=== PATIENT | male | born 1960 | race Caucasian/White ===

== ENCOUNTER → 2017-05-11 | Outpatient (CLI) | payer OTHER | LOC: FIMAGING 13:25 | PROVIDERS: ATTEND Orthopaedic Surgery | DX: M17.12 Unilateral primary osteoarthritis, left knee (principal); S83.012A Lateral subluxation of left patella, initial encounter ==

== ENCOUNTER 2017-05-23 09:10 | Observation (INO) | payer OTHER ==
--- NOTE | 2017-05-23 06:43 | PDHPUP ---
History & Physical Update H&P update statement: This history and physical update is based on an assessment of the patient which was completed after admission or registration (within 24 hours), but prior to the surgery/procedure.
--- NOTE | 2017-05-23 06:43 | PDIAF ---
- Diagnosis Diagnosis: left knee djd Code Status: Full Code - Medication Management Discharge Medications: Medications to Continue on Transfer Citalopram Hydrobromide [celeXA 10 MG] 10 mg PO Q2D 04/10/10 [Last Taken Unknown ] lamoTRIgine [LamICTAL 100 MG (*)] 100 mg PO DAILY 04/10/10 [Last Taken Unknown] Atorvastatin Calcium [Lipitor 20 mg (*)] 20 mg PO DAILY 05/04/17 [Last Taken Unknown] Glucosamine Sulfate [Glucosamine Sulfate 500 MG (*)] 500 mg PO DAILY 05/04/17 [ Last Taken Unknown] Herbals/Supplements -Info Only 1 ea PO DAILY 05/04/17 [Last Taken Unknown] Multivitamins [Multivitamin (*)] 1 each PO DAILY 05/04/17 [Last Taken Unknown] Discharge Medications: Refer to the Discharge Home Medication list for PRN reason. - Orders Services needed: Home Care, Physical Therapy Home Care Face to Face: I certify that this patient was under my care and that I had the required cqxy-ar-rnma encounter meeting the encounter requirements on the discharge day. My findings support the fact that the patient is homebound as defined in Home Care Face to Face Continued: CMS Chapter 7 Medicare Benefits Manual 30.1.1 , The condition of the patient is such that there exists a normal inability to leave home and consequently, leaving home would require a considerable and taxing effort. Activity/Weight Bearing Restrictions: wbat. rom as tolerated. daily dressing changes. may shower without bandage. no immersion. vish hose x 2 weeks. seek attn for increasing redness, swelling, drainage, discharge. f/u at two weeks [facility] [place] [facility] - Follow Up Care Current Providers and Referrals: Bang Larry MD [Primary Care Provider] -
[~2017-05-23 09:10] MED LIST: ROPIVACAINE 0.2% 80 MG, EPINEPHrine 0.2 MG, KETOROLAC TROMETHAMINE 30 MG, morphINE 10 M... IU ONE; TRANEXAMIC ACID 1,000 MG in NS 100 ML IV ONE; TRANEXAMIC ACID 2,000 MG in NS 100 ML IV ONE
[2017-05-23] MEDS ORDERED: FAMOTIDINE 20 MG TAB PO ONE (09:21)
[2017-05-23] MEDS ORDERED: ceFAZolin 2 GM/SWFI 2 GM/20 ML SYR IVP ONE (09:21)
[2017-05-23] MEDS ORDERED: ACETAMINOPHEN 325 MG TAB PO ONE (09:21)
[2017-05-23] MEDS ORDERED: LR 1,000 ML IV ONE (09:34)
[2017-05-23] MEDS ORDERED: LIDOCAINE 1% 2 ML INJ ID PRN (09:34)
--- NOTE | 2017-05-23 10:23 | PDANEPAE ---
ANE History of Present Illness 56 yo old obese male for L knee partial replacement. ANE Past Medical History - Cardiovascular History Hx Hypertension: Yes Hx Arrhythmias: No Hx Chest Pain: No Hx Coronary Artery / Peripheral Vascular Disease: No Hx CHF / Valvular Disease: No Hx Palpitations: No Cardiovascular History Comment: No meds for HTN, attempting diet modification and exercise. - Pulmonary History Hx COPD: No Hx Asthma/Reactive Airway Disease: No Hx Recent Upper Respiratory Infection: No Hx Oxygen in Use at Home: No Hx Sleep Apnea: Yes Sleep Apnea Screening Result - Last Documented: Negative Pulmonary History Comment: Uses CPAP. - Neurologic History Hx Cerebrovascular Accident: No Hx Seizures: No Hx Dementia: No - Endocrine History Hx Diabetes: No Hypothyroid: No Obesity: yes - Renal History Hx Renal Disorders: No - Liver History Hx Hepatic Disorders: No - Neurological & Psychiatric Hx Hx Neurological and Psychiatric Disorders: Yes Neurological / Psychiatric History Comment: BIPOLAR - Cancer History Hx Cancer: No - Congenital Disorder History Hx Congenital Disorders: No - GI History GERD: no Hx Gastrointestinal Disorders: No - Other Health History Other Health History: NONE - Chronic Pain History Chronic Pain: No - Surgical History Prior Surgeries: L KNEE X2, SHOULDER ANE Review of Systems Review of systems is: negative Review of Systems: - Exercise capacity METS (RN): 4 METS (unable to hike at all or walk much for the past month.) - Systems Constitutional: Reports: no symptoms Cardiac: Reports: no symptoms ANE Patient History - Allergies Allergies/Adverse Reactions: No Known Allergies Allergy (Unverified 04/10/10 08:42) - Home Medications Home medications: home medication list seen and reviewed Home Medications: Citalopram Hydrobromide [celeXA 10 MG] 10 mg PO Q2D 04/10/10 [Last Taken Unknown ] lamoTRIgine [LamICTAL 100 MG (*)] 100 mg PO DAILY 04/10/10 [Last Taken Unknown] Atorvastatin Calcium [Lipitor 20 mg (*)] 20 mg PO DAILY 05/04/17 [Last Taken Unknown] Glucosamine Sulfate [Glucosamine Sulfate 500 MG (*)] 500 mg PO DAILY 05/04/17 [ Last Taken Unknown] Multivitamins [Multivitamin (*)] 1 each PO DAILY 05/04/17 [Last Taken Unknown] RX: Herbals/Supplements -Info Only 1 ea PO DAILY 05/04/17 [Last Taken Unknown] - NPO status NPO Since - Liquids (Date): 05/22/17 NPO Since - Liquids (Time): 21:00 NPO Since - Solids (Date): 05/22/17 NPO Since - Solids (Time): 19:00 - Anes Hx Anes Hx: no prior problems - Smoking Hx Smoking Status: Never smoked Marijuana use: No - Alcohol Use Alcohol Use: Occasionally (tez every week or so) - Family Anes Hx Family Anes Hx: none Family Hx Anesthesia Complications: none ANE Labs/Vital Signs - Vital Signs Blood Pressure: 159/98 (Pt reports BP better controlled per home monitoring ( 120s/80s)) Heart Rate: 82 Respiratory Rate: 20 O2 Sat (%): 93 Height: 175.26 cm Weight: 108.862 kg ANE Physical Exam - Airway Neck exam: FROM Mallampati Score: Class 2 Mouth exam: normal dental/mouth exam - Pulmonary Pulmonary: clear to auscultation - Cardiovascular Cardiovascular: regular rate and rhythym - ASA Status ASA Status: III ANE Anesthesia Plan Anesthesia Plan: spinal Regional Anesthesia: adductor canal FNB
[2017-05-23] MEDS ORDERED: THROMBIN (BOVINE) 5,000 UNIT VIAL TP ONE ×2 (10:52→12:08)
[2017-05-23] MEDS ORDERED: CALCIUM CHLORIDE 1 GM/10 ML INJ ONE (10:53)
[2017-05-23] MEDS ORDERED: ceFAZolin 1 GM/5 ML SYR ONE (10:54)
[2017-05-23] MEDS ORDERED: fentaNYL 100 MCG/2 ML INJ IVP ONE (11:07)
[2017-05-23] MEDS ORDERED: PROPOFOL/EMULSION 500 MG/50 ML BOTTLE IV ONE (11:51)
[2017-05-23] MEDS ORDERED: DEXAMETHASONE 4 MG/ML VIAL ONE (11:51)
[2017-05-23] MEDS ORDERED: fentaNYL 100 MCG/2 ML INJ ONE (11:51)
[2017-05-23] MEDS ORDERED: NALOXONE HCL 0.4 MG/ML INJ IVP PRN ×2 (12:50→13:10)
[2017-05-23] MEDS ORDERED: TRANEXAMIC ACID 1,000 MG in NS 100 ML IV ONE (13:00)
[2017-05-23] MEDS ORDERED: PROPOFOL 200 MG/20 ML VIAL ONE (13:02)
[2017-05-23] MEDS ORDERED: PROMETHAZINE HCL 25 MG/ML INJ IVP PRN ×2 (13:10→13:23)
[2017-05-23] MEDS ORDERED: ACETAMINOPHEN 500 MG TAB PO PRN (13:10)
[2017-05-23] MEDS ORDERED: fentaNYL 100 MCG/2 ML INJ IVP PRN (13:10)
[2017-05-23] MEDS ORDERED: ALBUTEROL 3 ML DEYVIAL IH PRN (13:10)
[2017-05-23] MEDS ORDERED: OXYCODONE/APAP 5/325 TAB PO PRN (13:10)
[2017-05-23] MEDS ORDERED: ONDANSETRON 4 MG/2 ML VIAL IVP PRN ×2 (13:10→13:23)
[2017-05-23] MEDS ORDERED: ENALAPRILAT DIHYDRATE 1.25 MG/ML VIAL IVP PRN (13:10)
[2017-05-23] MEDS ORDERED: BUPIVACAINE 0.5% 30 ML SDV ONE (13:19)
[2017-05-23] MEDS ORDERED: METOCLOPRAMIDE 10 MG/2 ML VIAL IVP PRN (13:23)
[2017-05-23] MEDS ORDERED: TEMAZEPAM 15 MG CAP PO PRN (13:23)
[2017-05-23] MEDS ORDERED: PROMETHAZINE HCL 25 MG SUPPR PR PRN (13:23)
[2017-05-23] MEDS ORDERED: ONDANSETRON DISINTEGRATING 4 MG TAB PO PRN (13:23)
[2017-05-23] MEDS ORDERED: diphenhydrAMINE 25 MG CAP PO PRN (13:23)
[2017-05-23] MEDS ORDERED: oxyCODONE IR 5 MG TAB PO PRN (13:23)
[2017-05-23] MEDS ORDERED: CYCLOBENZAPRINE 10 MG TAB PO PRN (13:23)
[2017-05-23] MEDS ORDERED: DIPHENOXYLATE/ATROPINE LOMOTIL 1 TAB PO PRN (13:23)
[2017-05-23] MEDS ORDERED: MAGNESIUM HYDROXIDE 30 ML UDCUP PO PRN (13:23)
[2017-05-23] MEDS ORDERED: POLYETHYLENE GLYCOL 3350 17 GM PKT PO PRN (13:23)
[2017-05-23] MEDS ORDERED: DIAZEPAM 5 MG TAB PO PRN (13:23)
[2017-05-23] MEDS ORDERED: BISACODYL 10 MG SUPP PR PRN (13:23)
[2017-05-23] MEDS ORDERED: LACTULOSE 20 GM/30 ML UDCUP PO PRN (13:23)
[2017-05-23] MEDS ORDERED: LR 1,000 ML IV SCH (13:30)
[2017-05-23] MEDS: TRANEXAMIC ACID 650 MG TAB PO SCH ×2 (16:12→21:12)
[2017-05-23] MEDS: ACETAMINOPHEN 325 MG TAB PO SCH (17:34)
[2017-05-23] MEDS: ceFAZolin 2 GM/DEXTROSE 100 ML IV SCH (17:35)
[2017-05-23] MEDS: SENNOSIDES/DOCUSATE SODIUM TAB PO SCH (21:11)
[2017-05-23] MEDS: ASPIRIN 325 MG TAB PO SCH (21:11)
[2017-05-23] MEDS: FAMOTIDINE 20 MG TAB PO SCH (21:12)
[2017-05-24] MEDS: ceFAZolin 2 GM/DEXTROSE 100 ML IV SCH (01:41)
[2017-05-24] MEDS: ACETAMINOPHEN 325 MG TAB PO SCH ×3 (01:41→13:27)
[2017-05-24 04:48] LABS: HEMATOCRIT 42.5 % (40.0-51.0); HEMOGLOBIN 14.7 g/dL (13.7-17.5)
[2017-05-24] MEDS: TRANEXAMIC ACID 650 MG TAB PO SCH (05:15)
[2017-05-24] MEDS ORDERED: HYDROCODONE/APAP 5/325 TAB PO PRN (07:08)
--- NOTE | 2017-05-24 07:20 | PDIAF ---
- Diagnosis Diagnosis: left knee djd Code Status: Full Code - Medication Management Discharge Medications: Medications to Continue on Transfer Citalopram Hydrobromide [celeXA 10 MG] 10 mg PO Q2D 04/10/10 [Last Taken ] lamoTRIgine [LamICTAL 100 MG (*)] 100 mg PO DAILY 04/10/10 [Last Taken Unknown] Atorvastatin Calcium [Lipitor 20 mg (*)] 20 mg PO DAILY 05/04/17 [Last Taken Unknown] Glucosamine Sulfate [Glucosamine Sulfate 500 MG (*)] 500 mg PO DAILY 05/04/17 [ Last Taken Unknown] Herbals/Supplements -Info Only 1 ea PO DAILY 05/04/17 [Last Taken Unknown] Multivitamins [Multivitamin (*)] 1 each PO DAILY 05/04/17 [Last Taken Unknown] Hydrocodone/APAP 5/325 [[place] 5/325 (*)] 1 - 2 tab PO Q4HRS PRN #80 tab [Last Taken Unknown] Discharge Medications: Refer to the Discharge Home Medication list for PRN reason. - Orders Services needed: Home Care, Physical Therapy Home Care Face to Face: I certify that this patient was under my care and that I had the required jdhf-dy-aepq encounter meeting the encounter requirements on the discharge day. My findings support the fact that the patient is homebound as defined in Home Care Face to Face Continued: CMS Chapter 7 Medicare Benefits Manual 30.1.1 , The condition of the patient is such that there exists a normal inability to leave home and consequently, leaving home would require a considerable and taxing effort. Diet Recommendation: no restrictions on diet Diet Texture: Regular Texture Diet Activity/Weight Bearing Restrictions: wbat. rom as tolerated. daily dressing changes. may shower without bandage. no immersion. vish hose x 2 weeks. seek attn for increasing redness, swelling, drainage, discharge. f[place] [facility] [place] [place] Follow Up Care Current Providers and Referrals: Bang Larry MD [[facility] [place] Primary Care Provider] -
--- NOTE | 2017-05-24 07:44 | GDS ---
[f rep st] DISCHARGE SUMMARY ADMISSION DIAGNOSIS: Left knee degenerative joint disease. DISCHARGE DIAGNOSIS: Left knee degenerative joint disease. PROCEDURE: Left knee medial MAKOplasty. HISTORY OF PRESENT ILLNESS: The patient is a 56-year-old gentleman with end-stage arthritis to the m edial aspect of his left knee. Clinical and radiographic features are consistent with this. Given t he persistent nature of his symptoms, I have recommended partial knee replacement. He understood the risks, benefits, alternatives, and wished to proceed. Written consent was signed and placed in joe ent's chart. HOSPITAL COURSE: The patient was admitted to the hospital floor after uncomplicated partial knee rep lacement. He tolerated the procedure well. Overnight he had no complications. At the time of disch arge, he was tolerating an oral diet. Pain was well controlled on oral medicines. He was voiding an d stooling without difficulty. Dressing is clean, dry, and intact. He has negative Stephanie's bilatera lly. X-rays demonstrate anatomic alignment. No fracture or lucency. DISCHARGE MEDICATIONS: [place] 5/325 1-2 every 4 hours p.r.n. pain, aspirin 325 mg p.o. daily for 6 we eks. DISCHARGE ACTIVITY: Weightbearing, range of motion as tolerated. Daily dressing changes. No soakin g or immersion. FOLLOWUP: 2 weeks. Seek attention for increasing redness, swelling, drainage, discharge. /[id number]/MODL
[2017-05-24 07:50] VITALS: RESP 16; TEMP 98.4; O2SAT 94
[2017-05-24] MEDS ORDERED: lamoTRIgine 100 MG TAB PO SCH (09:00)
[2017-05-24] MEDS ORDERED: ATORVASTATIN CALCIUM 20 MG TAB PO SCH (09:00)
[2017-05-24] MEDS: SENNOSIDES/DOCUSATE SODIUM TAB PO SCH (09:46)
[2017-05-24] MEDS: FAMOTIDINE 20 MG TAB PO SCH (09:47)
[2017-05-24] MEDS: ASPIRIN 325 MG TAB PO SCH (09:47)
[2017-05-24 11:26] VITALS: BP 145/75; PULSE 72
--- NOTE | 2017-05-24 14:27 | ASDISCHSUM ---
Discharge Information Plan Status:Home with No Needs Medically Cleared to Leave: Discharge Date:05/24/2017 02:01 PM CM D/C Disposition:Home, Routine, Self-Care ADT D/C Disposition:Home Health Service Projected Discharge Date:05/24/2017 02:01 PM Transportation at D/C: Discharge Delay Reason: Follow-Up Date:05/24/2017 02:01 PM Discharge Slot: Final Diagnosis: Placement Information Patient Contact Information Contact Name:MAIRA Relationship: Address:[address] City:[place] Alternate Phone: State/Zip Code:[place] [address] Email: Financial Information Financial Class:HMO and PPO Plans Primary Plan Desc:TONI AARON PPO [employer] Primary Plan Number:[id number] Secondary Plan Desc: Secondary Plan Number: Assessment Information [facility] CM Progress Note CM Note CM Note Notes: PT rec home vs. outpatient. Pt medically stable for d/c, no CM d/c needs identified. Date Signed: 05/24/2017 02:25 PM Electronically Signed By:OSMANY Barnett Intervention Information
[2017-05-25] MEDS ORDERED: CITALOPRAM 20 MG TAB PO SCH (09:00)
[2017-05-25] MEDS ORDERED: NON-FORMULARY NEW DRUG (Citalopram Hydrobromide [Celexa 10 Mg] 10 MG) PO SCH (09:00)
--- NOTE | 2017-05-25 10:55 | GOP ---
[f rep st] OPERATIVE REPORT DATE OF OPERATION: 05/23/2017 SURGEON: Ravi Duran MD BUS ANALYST: Stone Trotter, CULLET CRUSHER AND WASHER, BUSINESS SYSTEMS DEVELOPER, assistant men's lacrosse coach, who was a medical necessity for the entire ty of the case. PREOPERATIVE DIAGNOSIS: Left knee medial compartment arthritis. POSTOPERATIVE DIAGNOSIS: Left knee medial compartment arthritis. PROCEDURE PERFORMED: Left knee medial compartment replacement-MAKOplasty. FINDINGS: SPECIMENS: To Pathology, none. ESTIMATED BLOOD LOSS: Minimal. INDICATIONS: The patient is a 56-year-old gentleman with end-stage arthritis to his left knee medial compartment. He has ncue-mt-kpaitdlx arthritis. He has patellofemoral articulation, very mild arth ritis to the lateral articulation. Given the persistent nature of his symptoms and failure of conser vative measures, I recommended operative intervention. I have outlined the surgical procedure, risks , benefits, and alternatives. He wished to proceed. Written consent was signed and placed in [facility]'s chart. DESCRIPTION OF PROCEDURE: The patient was identified in the preanesthesia area. The left knee was c learly demarcated as the operative site with indelible marker. He was given 2 g of Ancef intravenous ly en route to the operative suite. In the OR, general endotracheal anesthesia was administered. Attention was turned to the left knee, which was sterilely prepped and draped in the usual fashion. Appropriate time-out procedure was carried out. The limb was exsanguinated with an Esmarch bandage a nd tourniquet inflated to 275 mmHg. A standard anterior midline incision was made. Thick subcutaneo us flaps were elevated, followed by medial parapatellar arthrotomy. There was grade 2 chondral owens e in the patellofemoral articulation and grade 3-4 change in the medial compartment. Decision was ma de to proceed with a medial compartment arthroplasty. The femoral and tibial reference arrays were fixed in standard fashion. The femoral and tibial check points were then placed. The bony landmarks were then entered in the computer and balancing of the c omponents was carried out. Using the MAKOplasty robot protocol, the tension for a size 4 femur and s ize 5 tibia components was then made. A trial reduction was carried out over an 8 and then 9 mm thic k polyethylene spacer. The 9 was selected as the final implant. The trial components were withdrawn . The wound irrigated copiously. The bony surfaces were thoroughly dried. In a sequential fashion, the tibial and femoral components were then impacted and confirmed to be fully seated. The marginal cement was withdrawn. A size 9 mm thick polyethylene spacer was then impacted, confirmed to be full y seated. The knee was held in full extension as the cement cured. The capsule and surrounding soft tissue skin were then instilled with a joint cocktail of ropivacaine, morphine, Toradol, and epineph rine. A sterile compressive dressing was applied after closure of the medial and patellar arthrotomy and subcutaneous tissues. The skin had been stapled. A sterile dressing was applied. The patient was awakened, extubated, and taken to recovery room in good, stable condition. TOTAL TOURNIQUET TIME: 40 minutes. COMPLICATIONS: None. IMPLANTS: The [place] MAKOplasty Restoris femoral component size 4, size 5 tibial baseplate, 5 x 9 m m x3 polyethylene insert. /[id number]/MODL
== END 2017-05-24 14:01 | disposition home health service (06) ==
LOC: F3N 09:10 → INTOOBSV 09:10 → F3N 15:09
PROVIDERS: ADMIT Orthopaedic Surgery; ATTEND Orthopaedic Surgery
PROC: 0SRD0JZ Replacement of Left Knee Joint with Synthetic Substitute, Open Approach (ICD-10-PCS; principal; 2017-05-23 13:30)
DX: M13.862 Other specified arthritis, left knee (principal); E66.9 Obesity, unspecified; Z96.651 Presence of right artificial knee joint
CPT/HCPCS: 27446; 73560; 97110; 97161; 97165; G0378; C1713; J0171; J0690; J1100; J1885; J2405; J2704; J2795; J3010

== ENCOUNTER → 2017-06-28 | Outpatient (CLI) | payer OTHER | LOC: BMCIMAGING 13:57 | PROVIDERS: ATTEND Physician Assistant | DX: Z47.1 Aftercare following joint replacement surgery (principal); M79.89 Other specified soft tissue disorders; Z96.652 Presence of left artificial knee joint ==

== ENCOUNTER → 2017-07-27 | Outpatient (CLI) | payer OTHER | LOC: BMCIMAGING 08:09 | PROVIDERS: ATTEND Physician Assistant | DX: Z47.1 Aftercare following joint replacement surgery (principal); Z96.652 Presence of left artificial knee joint ==

== ENCOUNTER → 2017-07-28 | Outpatient (CLI) | payer OTHER ==
[~2017-07-28] MED LIST changes: +GADOBUTROL 10 ML VIAL IVP ONE; -ROPIVACAINE 0.2% 80 MG, EPINEPHrine 0.2 MG, KETOROLAC TROMETHAMINE 30 MG, morphINE 10 M... IU ONE; -TRANEXAMIC ACID 1,000 MG in NS 100 ML IV ONE; -TRANEXAMIC ACID 2,000 MG in NS 100 ML IV ONE
== END ==
LOC: FIMAGING 09:04
PROVIDERS: ATTEND Podiatrist Foot & Ankle Surgery
DX: Z01.818 Encounter for other preprocedural examination (principal); S86.011A Strain of right Achilles tendon, initial encounter; M22.42 Chondromalacia patellae, left knee; S92.121 Displaced fracture of body of right talus; M25.461 Effusion, right knee
CPT/HCPCS: A9585

== ENCOUNTER → 2017-12-06 | Outpatient (CLI) | payer OTHER | LOC: BMCIMAGING 15:42 | PROVIDERS: ATTEND Orthopaedic Surgery | DX: Z96.652 Presence of left artificial knee joint (principal); Z47.1 Aftercare following joint replacement surgery ==

== ENCOUNTER → 2017-12-12 | Outpatient (CLI) | payer OTHER | LOC: FIMAGING 09:55 | PROVIDERS: ATTEND Orthopaedic Surgery | DX: M25.562 Pain in left knee (principal); Z96.652 Presence of left artificial knee joint | CPT/HCPCS: 78315; A9503 ==

== ENCOUNTER 2018-01-09 06:25 | Inpatient (IN) | payer OTHER ==
--- NOTE | 2018-01-09 06:16 | PDIAF ---
- Diagnosis Diagnosis: left knee djd Code Status: Full Code - Medication Management Discharge Medications: Medications to Continue on Transfer Citalopram Hydrobromide [celeXA 10 MG] 10 mg PO MWF 04/10/10 [Last Taken ] lamoTRIgine [LamICTAL 100 MG (*)] 100 mg PO DAILY 04/10/10 [Last Taken Unknown] Glucosamine Sulfate [Glucosamine Sulfate 500 MG (*)] 500 mg PO DAILY 05/04/17 [ Last Taken Unknown] Multivitamins [Multivitamin (*)] 1 each PO DAILY 05/04/17 [Last Taken Unknown] Ergocalciferol [Vitamin D2 (*)] 50,000 unit PO MO 12/20/17 [Last Taken Unknown] Meloxicam 15 mg PO DAILY 12/20/17 [Last Taken Unknown] [place]-3 Fatty Acids [Fish Oil 1000 mg (*)] 1,000 mg PO DAILY 12/20/17 [Last Taken Unknown] Rosuvastatin Calcium [Crestor 20mg (*)] 20 mg PO DAILY 12/20/17 [Last Taken Unknown] Discharge Medications: Refer to the Discharge Home Medication list for PRN reason. - Orders Services needed: Physical Therapy Diet Recommendation: no restrictions on diet Diet Texture: Regular Texture Diet Additional Instructions: TOTAL JOINT ARTHROPLASTY DISCHARGE INSTRUCTIONS 1. Your surgeon follows the [facility] protocol for reducing your risk of DVT (blood clots) following surgery. Medication will be ordered to prevent blood clots. A sudden increase in calf pain and/or swelling could indicate a blood clot in your leg. If this occurs, please call your surgeon or his/her guest services assistant. An ultrasound of the leg may be necessary to diagnose a blood clot. If you have conditions that make you a higher risk for blood clots, your surgeon may use more aggressive ways to prevent them. Notify your surgeon if you think you are a high risk for blood clots. 2. Wear your white surgical stockings (BRENNAN hose) for 2 weeks. This decreases your swelling and may help prevent blood clots. It is ok to remove BRENNAN hose at night time to give your legs a break. 3. Swelling and bruising in the surgical leg is common. If you feel that it is excessive, please notify your surgeon. 4. Elevate your surgical leg with the ankle above the hip several times every day. Please keep the leg straight when you elevate by putting pillows under your foot. Do not put pillows under your knee. This will make being able to fully straighten more difficult. This is uncomfortable, but try to do it as much as possible. 5. For total knee replacements use compressive wrap on your knee for 3-5 days after surgery, then you can discontinue it. 6. Use a walker or crutches for 1-2 weeks. Progress your weight-bearing as tolerated. You may start to use a cane when you feel stable and safe. 7. You will receive physical therapy instructions in the hospital. Continue those exercises at home. There are additional exercises in the total joint booklet you were given before surgery. Outpatient physical therapy will begin 7- 10 days after surgery. Please schedule this in advance. 8. Use ice on your knee at least 3-5 times every day for 30 minutes. This helps reduce pain and swelling. Also use it at night before falling asleep. 9. Leave your surgical dressing in place for 2 weeks. Your dressing is water resistant, but not waterproof. Cover it with Saran Wrap or Wrogf-p-Twgm before showering. You may shower as soon as you feel safe entering a shower. If you notice bleeding from your incision 2 or 3 days after surgery, please notify your surgeon. 10. Due to narcotics, decreased activity and altered diet, most patients experience constipation after surgery. Use vgrp-szk-fwbensd stool softeners while you are on narcotics. 11. You may drive a car when you are comfortable bearing weight, have good muscular control of your leg and are off narcotics. This usually occurs 2-4 weeks after surgery, depending on which leg was operated on. 12. If there are questions not addressed here, please refer the [facility] book given for more information. If you still have questions, please contact your surgeon s office. 13. If you have a life-threatening emergency, please call 911 and go to the emergency room immediately. For non-life threatening emergencies, please call your physicians office for advice before going to the emergency room. - Follow Up Care Current Providers and Referrals: Jean-Pierre Padilla MD [Primary Care Provider] - Ravi Duran MD [Medical Doctor] -
--- NOTE | 2018-01-09 06:16 | PDHPUP ---
History & Physical Update H&P update statement: This history and physical update is based on an assessment of the patient which was completed after admission or registration (within 24 hours), but prior to the surgery/procedure. H&P update: no change in patient's condition since H&P completed
[~2018-01-09 06:25] MED LIST changes: -GADOBUTROL 10 ML VIAL IVP ONE; +ROPIVACAINE 0.2% 80 MG, EPINEPHrine 0.2 MG, KETOROLAC TROMETHAMINE 30 MG, morphINE 10 M... IU ONE; +TRANEXAMIC ACID 1,000 MG in NS 100 ML IV ONE; +TRANEXAMIC ACID 2,000 MG in NS 100 ML IV ONE
--- NOTE | 2018-01-09 06:34 | PDANEPAE ---
ANE History of Present Illness 57 yo male with L partial knee arthroplasty 05/20 now for revision. ANE Past Medical History - Cardiovascular History Hx Hypertension: Yes Hx Arrhythmias: No Hx Chest Pain: No Hx Coronary Artery / Peripheral Vascular Disease: No Hx CHF / Valvular Disease: No Hx Palpitations: No Cardiovascular History Comment: No meds for HTN, attempting diet modification and exercise. - Pulmonary History Hx COPD: No Hx Asthma/Reactive Airway Disease: No Hx Recent Upper Respiratory Infection: No Hx Oxygen in Use at Home: No Hx Sleep Apnea: Yes Sleep Apnea Screening Result - Last Documented: Positive Pulmonary History Comment: Uses CPAP. - Neurologic History Hx Cerebrovascular Accident: No Hx Seizures: No Hx Dementia: No - Endocrine History Hx Diabetes: No Hypothyroid: No Hyperthyroid: No Obesity: mild - Renal History Hx Renal Disorders: No - Liver History Hx Hepatic Disorders: No - Neurological & Psychiatric Hx Hx Neurological and Psychiatric Disorders: Yes Neurological / Psychiatric History Comment: BIPOLAR - Cancer History Hx Cancer: No - Congenital Disorder History Hx Congenital Disorders: No - GI History Hx Gastrointestinal Disorders: No - Other Health History Other Health History: none - Chronic Pain History Chronic Pain: No - Surgical History Prior Surgeries: L KNEE scope,partial replacement, torn ligament to right shoulder. right foot surgery 06/28 ANE Review of Systems Review of Systems: - Exercise capacity METS (RN): 6 METS - Systems Muscolosketal: Reports: joint pain (R ankle, L knee) ANE Patient History - Allergies Allergies/Adverse Reactions: No Known Allergies Allergy (Verified 12/20/17 10:28) - Home Medications Home Medications: Citalopram Hydrobromide [celeXA 10 MG] 10 mg PO MWF 04/10/10 [Last Taken ] lamoTRIgine [LamICTAL 100 MG (*)] 100 mg PO DAILY 04/10/10 [Last Taken 01/09/18 05:00] Glucosamine Sulfate [Glucosamine Sulfate 500 MG (*)] 500 mg PO DAILY 05/04/17 [ Last Taken 01/06/18] Multivitamins [Multivitamin (*)] 1 each PO DAILY 05/04/17 [Last Taken 01/06/18] Ergocalciferol [Vitamin D2 (*)] 50,000 unit PO MO 12/20/17 [Last Taken 01/06/18] Meloxicam 15 mg PO DAILY 12/20/17 [Last Taken 01/02/18] [place]-3 Fatty Acids [Fish Oil 1000 mg (*)] 1,000 mg PO DAILY 12/20/17 [Last Taken 01/06/18] Rosuvastatin Calcium [Crestor 20mg (*)] 20 mg PO DAILY 12/20/17 [Last Taken 08/21] - NPO status NPO Status: no food or drink >8 hours - Anes Hx Anes Hx: no prior problems - Smoking Hx Smoking Status: Never smoked - Family Anes Hx Family Anes Hx: neg - N/A Family Hx Anesthesia Complications: none ANE Labs/Vital Signs - Vital Signs Blood Pressure: 151/97 Heart Rate: 69 Respiratory Rate: 20 O2 Sat (%): 95 Height: 177.8 cm Weight: 106.594 kg ANE Physical Exam - Airway Neck exam: FROM Mallampati Score: Class 2 - Pulmonary Pulmonary: clear to auscultation - Cardiovascular Cardiovascular: regular rate and rhythym - ASA Status ASA Status: II ANE Anesthesia Plan Anesthesia Plan: spinal Regional Anesthesia: adductor canal FNB
--- NOTE | 2018-01-09 06:34 | POSTANESTH ---
Post Anesthetic Evaluation Cardiovascular Status: Normal, Stable Respiratory Status: Normal, Stable Level of Consciousness/Mental Status: Can Participate in Eval, Alert and Oriented Pain Control: Adequate, Prn Tx Ordered Nausea/Vomiting Control: Adequate, Prn Tx Ordered Complications Possibly Related to Anesthesia: None Noted Notes: L AC block placed upon arrival in PACU. Placement went smoothly with no complications evident. See OR record for details.
[2018-01-09] MEDS ORDERED: ACETAMINOPHEN 325 MG TAB PO ONE (06:35)
[2018-01-09] MEDS ORDERED: FAMOTIDINE 20 MG TAB PO ONE (06:35)
[2018-01-09] MEDS ORDERED: ceFAZolin 2 GM/DEXTROSE 100 ML IV ONE (06:35)
[2018-01-09] MEDS ORDERED: LR 1,000 ML IV ONE (06:36)
[2018-01-09] MEDS ORDERED: LIDOCAINE 1% 2 ML INJ ID PRN (06:36)
[2018-01-09] MEDS ORDERED: DEXAMETHASONE 4 MG/ML VIAL ONE (07:58)
[2018-01-09] MEDS ORDERED: fentaNYL 100 MCG/2 ML INJ ONE (07:58)
[2018-01-09] MEDS ORDERED: LIDOCAINE 2% 5 ML SDV ONE (07:58)
[2018-01-09] MEDS ORDERED: PROPOFOL/EMULSION 500 MG/50 ML BOTTLE IV ONE (07:58)
[2018-01-09] MEDS ORDERED: MIDAZOLAM 2 MG/2 ML VIAL ONE (08:10)
[2018-01-09] MEDS ORDERED: ACETAMINOPHEN 500 MG TAB PO PRN (09:19)
[2018-01-09] MEDS ORDERED: NALOXONE HCL 0.4 MG/ML INJ IVP PRN (09:19)
[2018-01-09] MEDS ORDERED: DIAZEPAM 5 MG/ML 1 ML SYR IVP PRN (09:19)
[2018-01-09] MEDS ORDERED: ONDANSETRON 4 MG/2 ML VIAL IVP PRN ×2 (09:19→09:22)
[2018-01-09] MEDS ORDERED: fentaNYL 100 MCG/2 ML INJ IVP PRN (09:19)
[2018-01-09] MEDS ORDERED: oxyCODONE IR 5 MG TAB PO PRN ×2 (09:19→09:22)
[2018-01-09] MEDS ORDERED: LR 500 ML IV PRN (09:19)
[2018-01-09] MEDS ORDERED: ALBUTEROL 3 ML DEYVIAL IH PRN (09:19)
[2018-01-09] MEDS ORDERED: PROPOFOL 200 MG/20 ML VIAL ONE (09:20)
[2018-01-09] MEDS ORDERED: PROMETHAZINE HCL 25 MG/ML INJ IVP PRN (09:22)
[2018-01-09] MEDS ORDERED: POLYETHYLENE GLYCOL 3350 17 GM PKT PO PRN (09:22)
[2018-01-09] MEDS ORDERED: MAGNESIUM HYDROXIDE 30 ML UDCUP PO PRN (09:22)
[2018-01-09] MEDS ORDERED: ONDANSETRON DISINTEGRATING 4 MG TAB PO PRN (09:22)
[2018-01-09] MEDS ORDERED: DIPHENOXYLATE/ATROPINE LOMOTIL 1 TAB PO PRN (09:22)
[2018-01-09] MEDS ORDERED: BISACODYL 10 MG SUPP PR PRN (09:22)
[2018-01-09] MEDS ORDERED: CYCLOBENZAPRINE 10 MG TAB PO PRN (09:22)
[2018-01-09] MEDS ORDERED: PROMETHAZINE HCL 25 MG SUPPR PR PRN (09:22)
[2018-01-09] MEDS ORDERED: diphenhydrAMINE 25 MG CAP PO PRN (09:22)
[2018-01-09] MEDS ORDERED: LACTULOSE 20 GM/30 ML UDCUP PO PRN (09:22)
[2018-01-09] MEDS ORDERED: traMADol 50 MG TAB PO PRN (09:22)
[2018-01-09] MEDS ORDERED: METOCLOPRAMIDE 10 MG/2 ML VIAL IVP PRN (09:22)
[2018-01-09] MEDS ORDERED: TEMAZEPAM 15 MG CAP PO PRN (09:22)
--- NOTE | 2018-01-09 09:22 | POSTOPPROG ---
Post Op Note Date of Operation: 01/09/18 Surgeon: Ravi Duran Clean In Places Operator: lorin Anesthesiologist: glory Anesthesia: Spinal Pre-op Diagnosis: right failed med melony Post-op Diagnosis: same Indication: same Procedure: revision med melony partial knee Inf/Abcess present in the surg proc area at time of surgery?: No Depth: Deep Incisional (Fascial) EBL: 100-500
[2018-01-09] MEDS ORDERED: MIDAZOLAM 2 MG/2 ML VIAL IVP ONE (09:26)
[2018-01-09] MEDS ORDERED: THROMBIN (BOVINE) 5,000 UNIT VIAL TP ONE (09:28)
[2018-01-09] MEDS ORDERED: CALCIUM CHLORIDE 1 GM/10 ML INJ ONE (09:28)
[2018-01-09] MEDS ORDERED: ceFAZolin 1 GM/5 ML SYR ONE (09:29)
[2018-01-09] MEDS ORDERED: LR 1,000 ML IV SCH (09:30)
[2018-01-09] MEDS ORDERED: ROPIVACAINE HCL 150 MG/30 ML INJ ONE (09:31)
--- NOTE | 2018-01-09 10:39 | SOAPPROG ---
SOAP Progress Note Assessment/Plan: Assessment: s/p revision right partial knee Plan: stable d./c home when stable precautions reviewed 01/09/18 10:37 Subjective: no pain mild dizzy no cp or sob Objective: Vital Signs Temp Pulse Resp BP Pulse Ox 69 13 137/86 H 95 01/09/18 07:49 01/09/18 10:16 01/09/18 10:16 01/09/18 10:16 dressing intact intact pfdf ehl tony neg homans no drainage xrays stable alignement nofx or lucency ICD10 Worksheet Patient Problems: Problems Problem Status Onset Arthritis of knee Acute - ICD10 Problem Qualifiers (1) Arthritis of knee
[2018-01-09] MEDS ORDERED: ONDANSETRON 4 MG/2 ML VIAL ONE (10:44)
[2018-01-09] MEDS ORDERED: ACETAMINOPHEN 325 MG TAB PO SCH (12:00)
[2018-01-09] MEDS ORDERED: TRANEXAMIC ACID 650 MG TAB PO SCH (14:00)
[2018-01-09 15:09] VITALS: BP 82/60
--- NOTE | 2018-01-09 15:34 | ASMTDCNOTE ---
Case Management Discharge Discharge Order Complete? Answers: Yes Patient to Obtain Answers: Independently Medications Transportation Arranged Answers: Family/Friends Discharge Comments Notes: Patient discharged to home. Lives with and son. Has an outpatient PT who he'll schedule with. DME at home. No CM needs. Date Signed: 01/09/2018 03:34 PM Electronically Signed By:Clementine Kirkland RN
[2018-01-09] MEDS ORDERED: ceFAZolin 2 GM/DEXTROSE 100 ML IV SCH (16:00)
[2018-01-09] MEDS ORDERED: SENNOSIDES/DOCUSATE SODIUM TAB PO SCH (21:00)
[2018-01-09] MEDS ORDERED: ASPIRIN 325 MG TAB PO SCH (21:00)
[2018-01-09] MEDS ORDERED: FAMOTIDINE 20 MG TAB PO SCH (21:00)
[2018-01-10] MEDS ORDERED: ROSUVASTATIN CALCIUM 20 MG TAB PO SCH (09:00)
[2018-01-10] MEDS ORDERED: lamoTRIgine 100 MG TAB PO SCH (09:00)
--- NOTE | 2018-01-10 11:11 | PDMN ---
Medical Necessity Medical necessity: [facility] S700 [place]plasty: A-2 days; INPT for revision of L TKA
[2018-01-11] MEDS ORDERED: CITALOPRAM 20 MG TAB PO SCH (09:00)
--- NOTE | 2018-01-18 11:53 | GDS ---
[f rep st] DISCHARGE SUMMARY PROCEDURE: Left medial MAKOplasty revision of tibial component. HISTORY OF PRESENT ILLNESS: John Paul Frank is a 57-year-old gentleman who is status post medial MAKOpl asty. He sustained a fall and loosened his tibial component. He returns today for scheduled revision of his tibial component. He understood the risks, benefits and alternatives, and wished to proceed. Written consent was signed and placed in patient's chart. HOSPITAL COURSE: The patient was admitted to the hospital floor following revision of his tibial com ponent for medial MAKOplasty. Tolerated the procedure well. Postoperatively he quickly cleared phys ical therapy. At the time of discharge he is tolerating an oral diet. Pain was well controlled on a ll medicines. He is voiding and stooling without difficulty. Dressing is clean, dry, and intact. DISCHARGE ACTIVITY: Weightbearing and range of motion as tolerated. Daily dressing changes. No soa contreras or immersion. May shower without the bandage. FOLLOWUP: In 2 weeks. Seek attention for increasing redness, swelling, drainage, discharge, other f ocal complaints. DISCHARGE MEDICATIONS: Oxycodone 5 mg 1-2 every 4 hours p.r.n. pain, aspirin 325 mg p.o. daily for 6 weeks. /[id number]/MODL
--- NOTE | 2018-01-18 12:08 | GOP ---
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 PREOPERATIVE DIAGNOSIS: Failed left medial MAKOplasty. POSTOPERATIVE DIAGNOSIS: Failed left medial MAKOplasty. PROCEDURE PERFORMED: Revision left knee medial MAKOplasty tibial component. FINDINGS: SPECIMENS: None. INDICATIONS: The patient is a 57-year-old gentleman who underwent a medial MAKOplasty. He sustained a fall in the postoperative period and has loosened his tibial component. He has persistent pain an d discomfort. Clinical evidence of loosening. I have therefore recommended operative revision of hi s tibial component. I have outlined the surgical procedure, risks, benefits, and alternatives. He w ished to proceed. Written consent was signed and placed in patient's chart. DESCRIPTION OF PROCEDURE: Patient was identified in the preanesthesia area. The left knee clearly d emarcated as the operative site with indelible marker. He was given 2 g of Ancef intravenously en ro casey to the operative suite. In the OR a spinal anesthetic was placed followed by sedation. Attentio n was turned to the left knee, which was sterilely prepped and draped in the usual fashion. A tourni quet was applied to the upper thigh. The limb was then sterilely prepped and draped in the usual fas hion. Appropriate time-out procedure was carried out. The previous incision was opened in its entir ety, carried sharply through the skin and subcutaneous tissue, directly to the medial parapatellar ar throtomy. This was re-opened, and the remaining sutures were removed. The patella was then shifted laterally exposing underlying medial MAKOplasty. The femoral component was interrogated. This was s table and appropriate. The tibial component was grossly loose. This was removed. All marginal ceme nt was withdrawn. The patella was then gently freshened, and a new size 5 tibial component was then cemented into place with a size 10 mm thick polyethylene spacer. This was held until the cement had fully cured. All marginal cement had been withdrawn. The knee was taken through range of motion, wa s stable to varus valgus anterior posterior stress. The knee was copiously irrigated. The medial pa rapatellar arthrotomy closed using #1 Ethibond suture. The tissue instilled with a joint cocktail of ropivacaine, morphine, Toradol, and epinephrine. The knee instilled with platelet-rich plasma. Sub cutaneous tissue closed using 2-0 Monocryl and skin paul. Sterile dressing was applied. The joe ent was awakened, extubated, taken to recovery room in good stable condition. TOTAL TOURNIQUET TIME: 40 minutes. COMPLICATIONS: None. IMPLANTS: A size 5 tibial component, 5 x 10 mm polyethylene spacer. DISPOSITION: To the recovery room then the floor. /[id number]/MODL
== END 2018-01-09 17:24 | disposition home or self-care (01) | DRG 468 ==
LOC: F3N 06:25
PROVIDERS: ADMIT Orthopaedic Surgery; ATTEND Orthopaedic Surgery
PROC: 0SWW0JZ Revision of Synthetic Substitute in Left Knee Joint, Tibial Surface, Open Approach (ICD-10-PCS; principal; 2018-01-09 08:15)
PROC: 6A550Z2 Pheresis of Platelets, Single (ICD-10-PCS; principal; 2018-01-09 08:15)
DX: T84.033A Mechanical loosening of internal left knee prosthetic joint, initial encounter (principal); M25.562 Pain in left knee; I10 Essential (primary) hypertension; E78.5 Hyperlipidemia, unspecified; G47.33 Obstructive sleep apnea (adult) (pediatric); F31.9 Bipolar disorder, unspecified
CPT/HCPCS: 97116-GP; 97161-GP; 97165-GO; C1713; J0171; J0690; J1100; J1885; J2250; J2270; J2405; J2704; J2795; J3010

== ENCOUNTER → 2018-08-02 | Outpatient (CLI) | payer OTHER | LOC: BMCIMAGING 08:30 | PROVIDERS: ATTEND Physician Assistant | DX: Z47.1 Aftercare following joint replacement surgery (principal); Z96.652 Presence of left artificial knee joint ==